=== PATIENT | female | born 1950 | race Caucasian/White ===

== ENCOUNTER 2021-03-10 05:47 | Outpatient (CLI) | payer MEDICARE, MEDICAID ==
[~2021-03-10] VITALS: Ht 139.7 cm; Wt 40.5 kg
== END 2021-03-10 09:16 | disposition home or self-care (01) ==
LOC: PREOP 05:47
PROVIDERS: ATTEND Specialist
DX: Z01.818 Encounter for other preprocedural examination (principal)

== ENCOUNTER 2021-03-12 11:13 | Day surgery (SDC) | payer MEDICARE, MEDICAID ==
[~2021-03-12] VITALS: Ht 139.7 cm; Wt 40.5 kg
[2021-03-12] MEDS ORDERED: TIMOLOL MALEATE 0.5% 5 ML (TIMOPTIC) BTL OU PRN (11:45)
[2021-03-12] MEDS ORDERED: POVIDONE (BETADINE) OPHTH SOLN 5% 30 ML OP ONE (11:45)
[2021-03-12] MEDS ORDERED: MOXIFLOXACIN OPHTH SOLN 5 MG/ML 0.3 ML SYRINGE OP ONE (11:45)
[2021-03-12] MEDS ORDERED: LIDOCAINE PF 1% 2 ML VIAL IR PRN (11:45)
[2021-03-12] MEDS: TETRACAINE 0.5% OPHTH SOLN 4 ML BTL (SINGLE DOSE ONLY) OU PRN ×4 (11:55→12:12)
[2021-03-12] MEDS: PHENYLEPHRINE 10% OPHTH (NEO-SYN) 5 ML BTL OU SCH ×3 (12:01→12:12)
[2021-03-12] MEDS: TROPICAMIDE 1% OPH SOLN (MYDRIACYL) 15 ML BTL OP SCH ×3 (12:01→12:12)
[2021-03-12 12:08] VITALS: BP 144/83
--- NOTE | 2021-03-12 12:49 | Ophthalmologist Pre-Op Note ---
Pre-Operative Progress Note H&P Reviewed The H&P was reviewed, patient examined and no changes noted. Date H&P Reviewed: Mar 12, 2021 Time H&P Reviewed: 12:48 Pre-Op Dx Cataract, Right Eye VASQUEZ PEREZ MD Mar 12, 2021 12:49
[2021-03-12] MEDS ORDERED: acetaZOLAMIDE ER 500 MG CAP (DIAMOX SEQUELS) PO ONE (13:00)
[2021-03-12] MEDS ORDERED: MIDAZOLAM 2 MG/2 ML (VERSED) VIAL ONE (13:01)
--- NOTE | 2021-03-12 13:22 | Ophthalmology Operative Report ---
Cataract removal/placement IOL PREOPERATIVE DIAGNOSIS: Cataract Right Eye POSTOPERATIVE DIAGNOSIS: Cataract Right Eye PROCEDURE: Cataract removal and placement of posterior chamber implant, right eye SURGEON: Jaxson Perez ANESTHESIA: Topical with sedation COMPLICATIONS: None ESTIMATED BLOOD LOSS: Minimal DESCRIPTION OF PROCEDURE: After proper informed consent was obtained, the patient, a 70 female, was taken to the Operating Room and the right eye was anesthetized with tetracaine. The right eye was then prepped and draped in the usual manner. A wire lid speculum was placed. A paracentesis was made at the left hand position. Preservative free lidocaine was injected into the anterior chamber followed by viscoelastic. A clear corneal incision was made in the temporal position. A capsulorrhexis was preformed and the central nuclear and cortical material were removed. The posterior capsule was polished and Haris 21.0 AU00T0 IOL was placed into the capsular bag. The residual viscoelastic was aspirated and balanced saline solution was injected into the anterior chamber. Moxifloxacin was injected into the anterior chamber. The wound was checked and found to be water tight. The patient tolerated the procedure well without complications. JAXSON PEREZ MD Mar 12, 2021 13:22
[2021-03-12 13:28] VITALS: BP 136/78
--- NOTE | 2021-03-12 14:11 | Anesthesia-General Post-Op ---
MAC Patient Condition Mental Status/LOC: Same as Preop Cardiovascular: Satisfactory Nausea/Vomiting: Absent Respiratory: Satisfactory Pain: Controlled Complications: Absent Post Op Complications Complications None Follow Up Care/Instructions Patient Instructions None needed. Anesthesiology Discharge Order Discharge Order Patient was seen after the procedure and she was doing well, no complaints, stable vital signs, no apparent adverse anesthesia problems. MARYJO SANCHEZ DO Mar 12, 2021 14:11
== END 2021-03-12 13:29 ==
LOC: SDC 11:13
PROVIDERS: ATTEND Specialist
DX: H25.11 Age-related nuclear cataract, right eye (principal)
CPT/HCPCS: 66984; V2632

== ENCOUNTER 2021-03-26 10:15 | Day surgery (SDC) | payer MEDICARE, MEDICAID ==
[~2021-03-26] VITALS: Ht 139.7 cm; Wt 40.5 kg
[2021-03-26 10:42] VITALS: BP 146/69
[2021-03-26] MEDS: TETRACAINE 0.5% OPHTH SOLN 4 ML BTL (SINGLE DOSE ONLY) OU PRN ×4 (10:43→10:59)
[2021-03-26] MEDS ORDERED: acetaZOLAMIDE ER 500 MG CAP (DIAMOX SEQUELS) PO ONE (10:45)
[2021-03-26] MEDS ORDERED: LIDOCAINE PF 1% 2 ML VIAL IR PRN (10:45)
[2021-03-26] MEDS ORDERED: TIMOLOL MALEATE 0.5% 5 ML (TIMOPTIC) BTL OU PRN (10:45)
[2021-03-26] MEDS ORDERED: MOXIFLOXACIN OPHTH SOLN 5 MG/ML 0.3 ML SYRINGE OP ONE (10:45)
[2021-03-26] MEDS ORDERED: POVIDONE (BETADINE) OPHTH SOLN 5% 30 ML OP ONE (10:45)
[2021-03-26] MEDS: PHENYLEPHRINE 10% OPHTH (NEO-SYN) 5 ML BTL OU SCH ×3 (10:48→10:59)
[2021-03-26] MEDS: TROPICAMIDE 1% OPH SOLN (MYDRIACYL) 15 ML BTL OP SCH ×3 (10:48→10:59)
--- NOTE | 2021-03-26 11:16 | Ophthalmologist Pre-Op Note ---
Pre-Operative Progress Note H&P Reviewed The H&P was reviewed, patient examined and no changes noted. Date H&P Reviewed: Mar 26, 2021 Time H&P Reviewed: 11:16 Pre-Op Dx Cataract, Left Eye VASQUEZ PEREZ MD Mar 26, 2021 11:16
[2021-03-26] MEDS ORDERED: MIDAZOLAM 2 MG/2 ML (VERSED) VIAL ONE (11:19)
--- NOTE | 2021-03-26 11:37 | Ophthalmology Operative Report ---
Cataract removal/placement IOL PREOPERATIVE DIAGNOSIS: Cataract Left Eye POSTOPERATIVE DIAGNOSIS: Cataract Left Eye PROCEDURE: Cataract removal and placement of posterior chamber implant, left eye SURGEON: aJxson Perez ANESTHESIA: Topical with sedation COMPLICATIONS: None ESTIMATED BLOOD LOSS: Minimal DESCRIPTION OF PROCEDURE: After proper informed consent was obtained, the patient, a 70 female, was taken to the Operating Room and the left eye was anesthetized with tetracaine. The left eye was then prepped and draped in the usual manner. A wire lid speculum was placed. A paracentesis was made at the left hand position. Preservative free lidocaine was injected into the anterior chamber followed by viscoelastic. A clear corneal incision was made in the temporal position. A capsulorrhexis was preformed and the central nuclear and cortical material were removed. The posterior capsule was polished and an Haris 21.5 AU00T0 was placed into the capsular bag. The residual viscoelastic was aspirated and balanced saline solution was injected into the anterior chamber. Moxifloxacin was injected into the anterior chamber. The wound was checked and found to be water tight. The patient tolerated the procedure well without complications. JAXSON PEREZ MD Mar 26, 2021 11:37
[2021-03-26 11:41] VITALS: BP 134/82
--- NOTE | 2021-03-26 12:42 | Anesthesia-General Post-Op ---
MAC Patient Condition Mental Status/LOC: Same as Preop Cardiovascular: Satisfactory Nausea/Vomiting: Absent Respiratory: Satisfactory Pain: Controlled Complications: Absent Post Op Complications Complications None Follow Up Care/Instructions Patient Instructions None needed. Anesthesiology Discharge Order Discharge Order Patient is doing well, no complaints, stable vital signs, no apparent adverse anesthesia problems. No complications reported per nursing. LISE SMITH CRNA Mar 26, 2021 12:42
== END 2021-03-26 11:44 ==
LOC: SDC 10:15
PROVIDERS: ATTEND Specialist
DX: H25.12 Age-related nuclear cataract, left eye (principal); Z83.3 Family history of diabetes mellitus; Z80.9 Family history of malignant neoplasm, unspecified
CPT/HCPCS: 66984; V2632

== ENCOUNTER 2022-05-20 11:03 | Emergency (ER) | payer MEDICARE, MEDICAID ==
[~2022-05-20] VITALS: Ht 147.3 cm; Wt 37.2 kg
[2022-05-20 11:23] LABS: BASOPHILS % (AUTO) 0 % (0-10); EOSINOPHILS # (AUTO) 0.1 10^3/uL (0.0-0.3); EOSINOPHILS % (AUTO) 2 % (0-10); HEMATOCRIT 39 % (35-52); HEMOGLOBIN 12.7 g/dL (11.5-16.0); LYMPHOCYTES % (AUTO) 38 % (12-44); MEAN CORPUSCULAR HEMOGLOBIN 30 pg (25-34); MEAN CORPUSCULAR HGB CONC 33 g/dL (32-36); MEAN CORPUSCULAR VOLUME 91 fL (80-99); MEAN PLATELET VOLUME 9.1 fL (9.0-12.2); MONOCYTES # (AUTO) 0.6 10^3/uL (0.0-1.0); MONOCYTES % (AUTO) 7 % (0-12); NEUTROPHILS # (AUTO) 4.2 10^3/uL (1.8-7.8); NEUTROPHILS % (AUTO) 53 % (42-75); PLATELET COUNT 329 10^3/uL (130-400); WHITE BLOOD COUNT 7.9 10^3/uL (4.3-11.0)
[2022-05-20 11:35] LABS: PROTHROMBIN TIME PATIENT 13.6 SEC (12.2-14.7)
[2022-05-20 11:37] LABS: ALBUMIN 3.9 GM/DL (3.2-4.5); POTASSIUM 3.7 MMOL/L (3.6-5.0)
[2022-05-20 11:38] LABS: CALCIUM 9.3 MG/DL (8.5-10.1)
[2022-05-20 11:39] LABS: TOTAL PROTEIN 7.7 GM/DL (6.4-8.2)
[2022-05-20 11:41] LABS: BILIRUBIN,TOTAL 0.2 MG/DL (0.1-1.0)
[2022-05-20 11:43] LABS: CREATININE SERUM 0.75 MG/DL (0.60-1.30)
[2022-05-20 11:46] LABS: MAGNESIUM 2.2 MG/DL (1.6-2.4)
--- NOTE | 2022-05-20 11:56 | Diagnostic Imaging Report ---
EXAMINATION: Chest 1 view HISTORY: Chest pain COMPARISON: None available. FINDINGS: Heart size and pulmonary vasculature are normal. There are mild interstitial opacities within the mid and lower lungs. No pleural effusion or pneumothorax. The osseous structures are intact. IMPRESSION: 1. Mild interstitial opacities within the lower lungs which can be seen with atelectasis, pulmonary edema, or atypical infection. Dictated by: Dictated on workstation # [id number]
--- NOTE | 2022-05-20 12:07 | ED Chest Pain ---
General Chief Complaint: Chest Pain Stated Complaint: CHEST PAINS Nursing Triage Note: PT AMB TO RM 3 WITH COMPLAINT OF CP. STATES STARTED THIS MORNING. WAS SENT BY [facility] FOR FURTHER EVALUATION. 325 ASA GIVEN BY [facility] Source: patient Exam Limitations: no limitations (MEGAN GARCIA APRN) History of Present Illness Date Seen by Provider: May 20, 2022 Time Seen by Provider: 11:05 Initial Comments Patient is a 72-year-old female who presents to the emergency department for evaluation of chest discomfort. She states that began sometime this morning. Patient was at her 's doctor's appointment and was asked by staff how she was doing. She endorsed some mild chest discomfort causing them to get an EKG. They noticed some possible abnormalities and sent the patient to the emergency department for further evaluation. Patient was given 325 mg aspirin dose in their clinic. Patient states she intermittently has some mild "chest discomfort". She states the discomfort is nearly gone at this time. She does not give any other descriptors outside of it being "mild discomfort". Denies any history of heart or lung problems. 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 Currently takes no medication per her report. She denies any palpitations, diaphoresis, dependent edema, recent URI symptoms, shortness of breath. She does not smoke. (MEGAN GARCIA APRN) Allergies and Home Medications Allergies Coded Allergies: No Known Drug Allergies (Unverified , 03/10/21) Patient Home Medication List Home Medication List Reviewed: Yes (MEGAN GARCIA APRN) No Active Prescriptions or Reported Meds Review of Systems Review of Systems Constitutional: no symptoms reported EENTM: No Symptoms Reported Respiratory: No Symptoms Reported Cardiovascular: See HPI, Chest Pain (MEGAN GARCIA APRN) Past Sfjyofy-Nukukd-Atiqhm Hx Patient Social History Tobacco Use?: No Use of E-Cig and/or Vaping dev: No Substance use?: No Alcohol Use?: No Pt feels they are or have been: No (MEGAN GARCIA APRN) Physical Exam Vital Signs Vital Signs - First Documented 05/20/22 11:05 Temp 36.3 Pulse 95 Resp 25 B/P (MAP) 152/94 (113) Pulse Ox 96 O2 Delivery Room Air (CRISTÓBAL HILARIO MD) Vital Signs Capillary Refill : Less Than 3 Seconds (MEGAN GARCIA APRN) Height, Weight, BMI Height: '" Weight: lbs. oz. kg; 17.00 BMI Method: General Appearance: No Apparent Distress, WD/WN HEENT: PERRL/EOMI, TMs Normal, Normal ENT Inspection, Pharynx Normal Neck: Full Range of Motion, Normal Inspection, Non Tender, Supple Respiratory: Chest Non Tender, Lungs Clear, Normal Breath Sounds Cardiovascular: Regular Rate, Rhythm Gastrointestinal: Non Tender, Soft Neurologic/Psychiatric: Alert, Oriented x3, No Motor/Sensory Deficits, Normal Mood/Affect Skin: Normal Color, Warm/Dry (MEGAN GARCIA APRN) Progress/Results/Core Measures Results/Orders Lab Results Laboratory Tests Test 05/20/22 11:10 05/20/22 13:32 Range/Units White Blood Count 7.9 4.3-11.0 10^3/uL Red Blood Count 4.26 3.80-5.11 10^6/uL Hemoglobin 12.7 11.5-16.0 g/dL Hematocrit 39 35-52 % Mean Corpuscular Volume 91 80-99 fL Mean Corpuscular Hemoglobin 30 25-34 pg Mean Corpuscular Hemoglobin Concent 33 32-36 g/dL Red Cell Distribution Width 12.9 10.0-14.5 % Platelet Count 329 130-400 10^3/uL Mean Platelet Volume 9.1 9.0-12.2 fL Immature Granulocyte % (Auto) 0 % Neutrophils (%) (Auto) 53 42-75 % Lymphocytes (%) (Auto) 38 12-44 % Monocytes (%) (Auto) 7 0-12 % Eosinophils (%) (Auto) 2 0-10 % Basophils (%) (Auto) 0 0-10 % Neutrophils # (Auto) 4.2 1.8-7.8 10^3/uL Lymphocytes # (Auto) 3.0 1.0-4.0 10^3/uL Monocytes # (Auto) 0.6 0.0-1.0 10^3/uL Eosinophils # (Auto) 0.1 0.0-0.3 10^3/uL Basophils # (Auto) 0.0 0.0-0.1 10^3/uL Immature Granulocyte # (Auto) 0.0 0.0-0.1 10^3/uL Prothrombin Time 13.6 12.2-14.7 SEC INR Comment 1.0 0.8-1.4 Activated Partial Thromboplast Time 27 24-35 SEC Sodium Level 137 135-145 MMOL/L Potassium Level 3.7 3.6-5.0 MMOL/L Chloride Level 104 98-107 MMOL/L Carbon Dioxide Level 23 21-32 MMOL/L Anion Gap 10 5-14 MMOL/L Blood Urea Nitrogen 19 H 7-18 MG/DL Creatinine 0.75 0.60-1.30 MG/DL Estimat Glomerular Filtration Rate 83 BUN/Creatinine Ratio 25 Glucose Level 97 70-105 MG/DL Calcium Level 9.3 8.5-10.1 MG/DL Corrected Calcium 9.4 8.5-10.1 MG/DL Magnesium Level 2.2 1.6-2.4 MG/DL Total Bilirubin 0.2 0.1-1.0 MG/DL Aspartate Amino Transf (AST/SGOT) 19 5-34 U/L Alanine Aminotransferase (ALT/SGPT) 15 0-55 U/L Alkaline Phosphatase 62 40-136 U/L Myoglobin 26.0 10.0-92.0 NG/ML Troponin I < 0.028 < 0.028 <0.028 NG/ML Total Protein 7.7 6.4-8.2 GM/DL Albumin 3.9 3.2-4.5 GM/DL (CRISTÓBAL HILARIO MD) My Orders Orders - CRISTÓBAL HILARIO MD Cbc With Automated Diff (05/20/22 11:05) Magnesium (05/20/22 11:05) Comprehensive Metabolic Panel (05/20/22 11:05) Myoglobin Serum (05/20/22 11:05) Protime With Inr (05/20/22 11:05) Partial Thromboplastin Time (05/20/22 11:05) Troponin I [place] (05/20/22 11:05) Chest 1 View, Ap/Pa Only (05/20/22 11:05) Ekg Tracing (05/20/22 11:05) O2 (05/20/22 11:05) Monitor-Rhythm Ecg Trace Only (05/20/22 11:05) Ed Iv/Invasive Line Start (05/20/22 11:05) (CRISTÓBAL HILARIO MD) Vital Signs/I&O 05/20/22 05/20/22 11:05 14:29 Temp 36.3 Pulse 95 80 Resp 25 17 B/P (MAP) 152/94 (113) 144/81 Pulse Ox 96 97 O2 Delivery Room Air Room Air (CRISTÓBAL HILARIO MD) Blood Pressure Mean: 113 Progress Progress Note : Progress Note Patient is nontoxic and well-hydrated on exam. She was ambulatory to the exam room without issue. Vital signs are reassuring. Patient initially appeared to have an irregularly irregular heart rate on the monitor but findings on formal EKG showed what appears to be sinus arrhythmia. After patient was in the room for a short period of time the heart rate on the monitor appeared to be sinus. She is awake alert and answers all questions appropriately. Denies any pain stating she only has "chest discomfort" and states it is very mild. No adventitious lung sounds or increased work of breathing noted. No dependent edema appreciated. Chest pain work-up initiated including orders for CBC, CMP, troponin, coagulation studies, EKG, chest x-ray. No aspirin was given as patient already had 325 mg given at her clinic prior to arrival. Laboratory evaluation is overall very reassuring. Specifically there are is no leukocytosis on CBC, kidney dysfunction or metabolic derangement on CMP, coagulation studies are reassuring, and the troponin is not elevated. EKG without acute ischemic change or arrhythmia. There is incidental notation of sinus arrhythmia. Chest x-ray with no evidence of cardiomyopathy or other concerning findings outside of some mild interstitial opacities bilaterally. Patient does not have any respiratory symptoms at this time. A repeat troponin was obtained approximately 2 hours after patient arrived. The chest pain had been occurring over 3 hours at the time the repeat troponin was obtained. Repeat troponin was not elevated. Patient states she does not have any discomfort at the time of reexam. Low suspicion for ACS at this time. Discussed importance of close follow-up with cardiology. Return precautions for urgent symptomology discussed. Patient verbalized understanding. (MEGAN GARCIA APRN) EKG : EKG Time: 11:09 Rate: 90 Rhythm: Normal Sinus Comment sinus arrhythmia (MEGAN GARCIA APRN) Departure Impression Primary Impression: Chest pain Qualified Codes: R07.9 - Chest pain, unspecified Disposition: HOME, SELF-CARE Condition: Stable Departure-Patient Inst. Decision time for Depature: 14:05 (MEGAN GARCIA APRN) Referrals: ALIX BOOTH MD NO,LOCAL PHYSICIAN (PCP) Primary Care Physician Patient Instructions: Chest Pain, Adult ED Scripts No Active Prescriptions or Reported Meds ATTENDING PHYSICIAN NOTE: I was physically present as attending physician in the emergency department during the care of this patient, but I was not directly involved in the decision making or delivery of care for this patient. (CRISTÓBAL HILARIO MD) MEGAN GARCIA APRN May 20, 2022 12:07 CRISTÓBAL HILARIO MD May 21, 2022 06:12
[2022-05-20 14:29] VITALS: BP 144/81
== END 2022-05-20 14:29 | disposition home or self-care (01) ==
LOC: EDUNIT# 11:03 → ER 11:04
DX: R07.89 Other chest pain (principal)
CPT/HCPCS: 36415; 71045; 80053; 83735; 83874; 84484; 85025; 85610; 85730; 93005; 93041